=== PATIENT | male | born 1970 | race Caucasian/White ===

== ENCOUNTER 2016-06-23 18:29 | Emergency (ER) | payer OTHER ==
[2016-06-23 18:36] VITALS: BP 130/80
[2016-06-23] MEDS ORDERED: HYDROcodone/ACETAMINOPHEN 1 EACH TABLET PO ONE (19:12)
[2016-06-23] MEDS ORDERED: HYDROcodone/ACETAMINOPHEN 1 EACH TABLET ONE (19:18)
--- NOTE | 2016-06-23 19:18 | ERNOTE ---
Date of Service: 06/23/16 Time Seen by Provider: 06/23/16 18:57 Stated Complaint: URI Presenting Symptoms:: fever Source: patient Exam Limitations: no limitations Immunizations: IMMUNIZATION HX Immunizations Up to Date No History of Influenza Vaccine Yes Hx Pneumococcal Vaccination No Allergies/Adverse Reactions: Allergies No Known Allergies Allergy (Verified 10/18/12 03:50) Home Medications: HOME MEDICATIONS HYDROcodone/ACETAMINOPHEN [[place] 5-325] 1 - 2 tab PO QID PRN #30 tab 06/23/16 [ Last Taken Unknown] Venlafaxine HCl [Effexor] 75 mg PO HS 06/23/16 [Last Taken Unknown] - History of Present Ilness Narrative: 4 days ago in the evening he developed a cough, a fever to 103, headache, malaise, pain in his lungs when he breathed, myalgias, all of which have continued, but are somewhat better now. His daughter developed similar symptoms yesterday, and at the doctor's office was found to have influenza type A and strep. Garry did have a flu shot this year. Timing: other - improved some Severity: moderate Frequency/Possible Cause: Reports: no prior episodes Modifying Factors - Improves: Reports: other - tylenol a little Modifying Factors - Worsens: Reports: activity, coughing Associated Symptoms: Reports: chest pain/soreness, cough, dizziness, lightheadedness, headache, sore throat, muscle aches, fever/chills Prior Treatment: Denies: recently seen, treated by physician Review of Systems - Review of Systems Constitutional: Present: fever, chills, diaphoresis, weakness, fatigue, malaise , decreased activity level EYE: Present: no symptoms reported ENT: Present: See HPI Respiratory: Present: See HPI Cardiology: Present: chest pain Gastrointestinal/Abdominal: Present: no symptoms reported Genitourinary: Present: no symptoms reported Musculoskeletal: Present: muscle pain Neurological: Present: headache Endocrine: Present: no symptoms reported Hematologic/Lymphatic: Present: no symptoms reported Psych: Present: no symptoms reported All Other Systems: All systems neg except as marked - Patient's Past Medical History Patient History - Medical: Anxiety, Depression Patient History - Cardiac/Respiratory: No pertinent hx Patient History - Cancer: No Hx of Cancer Patient History - Surgical Procedures: Other - Social History Smoking Status: Never smoker - Immunizations Immunizations Up to Date: No Hx Pneumococcal Vaccination: No History of Influenza Vaccine: Yes Physical Exam - Physical Exam General Appearance: Present: wd/wn, alert, no apparent distress Eye Exam: Normal inspection: bilateral, PERRL: bilateral, EOMI: bilateral Ears, Nose, Throat: Present: normal ENT inspection, hearing grossly normal, nasal congestion, sinus pain/drainage, pharyngeal erythema Neck: Present: normal inspection, lymphadenopathy (R), lymphadenopathy (L) Respiratory: Present: no respiratory distress, normal breath sounds Cardiovascular/Chest: Present: regular rate, rhythm, no murmur Gastrointestinal/Abdominal: Present: normal bowel sounds, nontender, nondistended, soft, no organomegaly Back Exam: Present: normal inspection, no CVA tenderness, no vertebral tenderness Extremity Exam: Present: normal inspection, no edema Neurological Exam: Present: alert, oriented, normal mood/affect Skin Exam: Present: normal color, warm/dry ED Progress - Vital Signs Patient's Vital Signs:: I have reviewed the patient's vital signs. Vital Signs: Vital Signs 06/23/16 18:33 Temperature 36.9 C Respiratory 18 Rate Blood Pressure 130/80 O2 Sat by Pulse 83 L Oximetry - Progress/Reassessment Chief Complaint: Upper Respiratory Symptoms Departure - Departure Clinical Impression: Influenza A Disposition: Home self-care Condition: Good Instructions: Influenza, Adult, [id number] Additional Instructions: Rest. Lots of fluids. See your doctor next week. Referrals: Jerrica Soriano MD [Primary Care Provider] - Prescriptions: HYDROcodone/ACETAMINOPHEN [[place] 5-325] 1 - 2 tab PO QID PRN #30 tab PRN Reason: Pain OR cough
== END 2016-06-23 19:25 | disposition home or self-care (01) ==
LOC: ER 18:29
DX: J10.1 Influenza due to other identified influenza virus with other respiratory manifestations (principal); F32.9 Major depressive disorder, single episode, unspecified; F41.9 Anxiety disorder, unspecified